=== PATIENT | female | born 1965 | race Caucasian/White ===

== ENCOUNTER 2020-10-10 19:36 | Emergency (ER) | payer OTHER ==
[~2020-10-10 19:36] MED LIST: AZITHROMYCIN250 MG PO; CEFDINIR300 MG PO; DUONEB 2.5-0.5M1 AMP NEB; MEDROL 4MG DOSEP4 MG PO; METFORMIN HCL500 MG PO; PRAVACHOL20 MG PO; PREDNISONE 20MG20 MG PO; PROZAC20 MG PO; SYNTHROID 0.1M0.1 MG PO; VENTOLIN HFA IN18 GM INH; VICTOZA 2-0.6 MG/0.1 SC
== END 2020-10-10 22:30 | disposition home or self-care (01) ==
LOC: FER 19:36
DX: S50.02XA Contusion of left elbow, initial encounter (principal); I10 Essential (primary) hypertension; E11.9 Type 2 diabetes mellitus without complications; E03.9 Hypothyroidism, unspecified; Z79.84 Long term (current) use of oral hypoglycemic drugs; Z79.899 Other long term (current) drug therapy; W19.XXXA Unspecified fall, initial encounter; Y92.009 Unspecified place in unspecified non-institutional (private) residence as the place of occurrence of the external cause
CPT/HCPCS: 73080; 73090; J1885

== ENCOUNTER 2021-05-31 15:47 | Emergency (ER) | payer OTHER ==
[2021-05-31 18:31] LABS: INFLUENZA A NAA NEGATIVE (NEGATIVE)
[2021-05-31 18:43] LABS: CORONAVIRUS 2019 SARS-COV-2 POSITIVE (NEGATIVE)
[2021-05-31] MEDS ORDERED: ZPAK PO (20:02)
[2021-05-31] MEDS ORDERED: MEDROL 4MG DOSEP4 MG PO (20:02)
[2021-05-31] MEDS ORDERED: VENTOLIN HFA IN18 GM INH (20:02)
== END 2021-05-31 20:15 | disposition home or self-care (01) ==
LOC: FER 15:47
PROVIDERS: Nurse Practitioner Family
DX: U07.1 COVID-19 (principal); J44.9 Chronic obstructive pulmonary disease, unspecified; J40 Bronchitis, not specified as acute or chronic; E11.9 Type 2 diabetes mellitus without complications
CPT/HCPCS: 71045; J1100; U0002

== ENCOUNTER 2021-12-29 16:06 | Emergency (ER) | payer OTHER ==
[~2021-12-29 16:06] MED LIST changes: +ZPAK PO
[2021-12-29 18:40] LABS: CORONAVIRUS 2019 SARS-COV-2 NEGATIVE (NEGATIVE); INFLUENZA A NAA NEGATIVE (NEGATIVE)
[2021-12-29 21:05] LABS: BASOPHIL 0.4 % (0-2); EOSINOPHIL 1.7 % (0-5); HCT 45.1 % (37.0-47.0); HGB 14.5 g/dl (12.5-16.0); LYMPHOCYTE 38.1 % (15-48); MCHC 32.2 g/dL (32.0-36.0); MCV 87.1 fL (78.0-100.0); MONOCYTE 5.5 % (0-12); MPV 9.9 fL (6.0-9.5); NEUTROPHIL 53.9 % (41-80); NRBC 0; PLT 301 K/uL (150-400); RBC 5.18 M/uL (4.20-5.40); RDW 14.9 % (11.5-14.0); WBC 13.8 K/uL (4.0-10.5)
[2021-12-29 21:26] LABS: BUN/CREAT RATIO (CALC) 19.8 RATIO; CREATININE 0.81 mg/dL (0.51-0.95); POTASSIUM 3.9 mmol/L (3.5-5.1)
[2021-12-29] MEDS ORDERED: NORCO 5-325 TA1 EACH PO (22:56)
== END 2021-12-29 23:22 | disposition home or self-care (01) ==
LOC: FER 16:06
PROVIDERS: Emergency Medicine; Internal Medicine
DX: R51.9 Headache, unspecified (principal); I10 Essential (primary) hypertension; E11.9 Type 2 diabetes mellitus without complications; E03.9 Hypothyroidism, unspecified; F17.210 Nicotine dependence, cigarettes, uncomplicated; Z79.84 Long term (current) use of oral hypoglycemic drugs; Z79.82 Long term (current) use of aspirin; Z79.899 Other long term (current) drug therapy; Z20.822 Contact with and (suspected) exposure to COVID-19
CPT/HCPCS: 36415; 70450; 80048; 85025; Q9967; U0002